=== PATIENT | male | born 1955 | race Caucasian/White ===

== ENCOUNTER 2021-03-29 08:31 | Outpatient (RCR) | payer MEDICARE, OTHER | END 2021-06-27 | disposition home or self-care (01) | LOC: ONC 08:31 | PROVIDERS: ATTEND Radiology Radiation Oncology | DX: C61 Malignant neoplasm of prostate (principal); E78.00 Pure hypercholesterolemia, unspecified; I10 Essential (primary) hypertension; E78.5 Hyperlipidemia, unspecified; M06.9 Rheumatoid arthritis, unspecified | CPT/HCPCS: 76873; 99204 ==

== ENCOUNTER 2021-08-04 05:33 | Outpatient (CLI) | payer MEDICARE ==
[~2021-08-04] VITALS: Ht 172.7 cm; Wt 77.2 kg
[2021-08-04] MEDS ORDERED: PEDI18TA2 PO (11:37)
[2021-08-04] MEDS ORDERED: TOFA5TAB PO (11:37)
[2021-08-04] MEDS ORDERED: OLME40TA12 PO (11:37)
[2021-08-04] MEDS ORDERED: ACHD5005 PO (11:37)
[2021-08-04] MEDS ORDERED: ROSU5TAB PO (11:37)
== END 2021-08-04 14:19 | disposition home or self-care (01) ==
LOC: PREOP 05:33
PROVIDERS: ATTEND Radiology Radiation Oncology
DX: Z01.818 Encounter for other preprocedural examination (principal)

== ENCOUNTER 2021-08-11 09:07 | Day surgery (SDC) | payer MEDICARE ==
[~2021-08-11] VITALS: Ht 172.7 cm; Wt 77.2 kg
[2021-08-11] VITALS (10 sets, daily range): BP systolic 105–137; BP diastolic 72–93
[~2021-08-11 09:07] MED LIST: ACHD5005 PO; OLME40TA12 PO; PEDI18TA2 PO; ROSU5TAB PO; TOFA5TAB PO
--- NOTE | 2021-08-11 10:01 | Progress Note-Pre Operative ---
Pre-Operative Progress Note H&P Reviewed The H&P was reviewed, patient examined and no changes noted. Date Seen by Provider: Aug 11, 2021 Time Seen by Provider: 10:00 Date H&P Reviewed: Aug 11, 2021 Time H&P Reviewed: 10:00 Pre-Operative Diagnosis: Prostate cancer cT1c, PSA 5.35, [place] 7 (3+4) JOLANTA LEE MD Aug 11, 2021 10:01
[2021-08-11] MEDS ORDERED: ACET1TAB43 PO (10:04)
[2021-08-11] MEDS ORDERED: CIPR-226 PO (10:04)
--- NOTE | 2021-08-11 10:09 | Discharge Inst-Simple/Standard ---
Discharge Inst-Standard Reconcile Patient Problems Problems Reviewed?: Yes Discharge Medications New, Converted or Re-Newed RX: Other (scripts called into [facility] in [place] 08/10/21) Patient Instructions/Follow Up Plan of Care/Instructions/FU: 1) one month post implant scan at cancer center 09/08/21 at 10:00 a.m. 2) one month follow up with Dr. Chaudhari 09/09/21 at 2:45 p.m. Activity as Tolerated: Yes Discharge Diet: No Restrictions Other Inst to Patient Please instruct patient on mendieta care and self removal to be done on Monday08/16/21 morning. JOLANTA LEE MD Aug 11, 2021 10:09
[2021-08-11] MEDS: LACTATED RINGERS 1,000 ML IV PRN ×2 (10:22→12:34)
[2021-08-11] MEDS ORDERED: BACITRACIN OINTMENT 28 GM TUBE ONE (11:12)
[2021-08-11] MEDS ORDERED: ONDANSETRON 4 MG/2 ML (SDV) Z0FRAN ONE (11:40)
[2021-08-11] MEDS ORDERED: fentaNYL INJ 100 MCG/2 ML AMP ONE (11:40)
[2021-08-11] MEDS ORDERED: proPOfol 200 MG/20 ML (DIPRIVAN) VIAL IV ONE (11:40)
[2021-08-11] MEDS ORDERED: LIDOCAINE PF 2% 5 ML (XYLOCAINE) VIAL ONE (11:40)
[2021-08-11] MEDS ORDERED: SEVOFLURANE (ULTANE) 15 ML INHAL SOLN ONE (11:40)
[2021-08-11] MEDS ORDERED: MIDAZOLAM 2 MG/2 ML (VERSED) VIAL ONE (11:41)
--- NOTE | 2021-08-11 12:50 | Anesthesia-General Post-Op ---
General Patient Condition Mental Status/LOC: Same as Preop Cardiovascular: Satisfactory Nausea/Vomiting: Absent Respiratory: Satisfactory Pain: Controlled Complications: Absent Post Op Complications Complications None Follow Up Care/Instructions Patient Instructions None needed. Anesthesia/Patient Condition Patient Condition Patient is doing well, no complaints, stable vital signs, no apparent adverse anesthesia problems. No complications reported per nursing. YOLI IRIZARRY CRNA Aug 11, 2021 12:50
[2021-08-11] MEDS ORDERED: PHENYLEPHRINE 100 MCG/ML 10 ML (ANESTHESIA) SYR ONE (12:54)
--- NOTE | 2021-08-11 12:58 | Progress Note-Post Operative ---
Post-Operative Progess Note Surgeon (s)/Riverboat Master (s) Surgeon JOLANTA LEE MD Riverboat Master: Jolanta QUINTEROS MD Pre-Operative Diagnosis Prostate cancer cT1c, PSA 5.35, [place] 7 (3+4) Post-Operative Diagnosis Same as pre-op Procedure & Operative Findings Date of Procedure 08/11/21 Procedure Performed/Findings (1) 100% Cesium 131 permanent prostate seed implant (2) Injection of biodegradable hydrogel prostate-rectal spacer utilizing the SpaceOAR system (3) Cystogram Prostate volume 37 cc Anesthesia Type General Estimated Blood Loss Estimated blood loss (mL): Minimal Specimens/Packing Specimens Removed None Packing: None JOLANTA LEE MD Aug 11, 2021 12:58
[2021-08-11] MEDS ORDERED: MEPERIDINE (DEMEROL) INJ 50 MG/ML IVP ONE (13:00)
[2021-08-11] MEDS ORDERED: PROMETHAZINE INJ 25 MG/ML (PHENERGAN) AMP IVP ONE (13:00)
[2021-08-11] MEDS ORDERED: morphine INJ 10 MG/ML 1ML (SYR OR VIAL) IVP ONE (13:00)
[2021-08-11] MEDS ORDERED: ONDANSETRON 4 MG/2 ML (SDV) Z0FRAN IVP PRN (13:00)
--- NOTE | 2021-08-11 13:30 | Diagnostic Imaging Report ---
INDICATION: Fluoroscopy for brachytherapy. Fluoroscopy was provided during brachytherapy. 15 seconds of fluoroscopic time was utilized. Single image was obtained and demonstrated multiple prostate radiation seed implants. IMPRESSION: Fluoroscopy for brachytherapy. Dictated by: Dictated on workstation # [id number]
== END 2021-08-11 15:00 | disposition home or self-care (01) ==
LOC: SDC 09:07
PROVIDERS: ATTEND Radiology Radiation Oncology
DX: C61 Malignant neoplasm of prostate (principal); E78.00 Pure hypercholesterolemia, unspecified; I10 Essential (primary) hypertension; M06.9 Rheumatoid arthritis, unspecified; E78.5 Hyperlipidemia, unspecified; Z80.49 Family history of malignant neoplasm of other genital organs; Z79.891 Long term (current) use of opiate analgesic; Z79.899 Other long term (current) drug therapy
CPT/HCPCS: 76000; 76965; 77290; 77318; 77332; 77370; 77470; 77778; 87081

== ENCOUNTER 2021-09-08 10:02 | Outpatient (RCR) | payer MEDICARE ==
[~2021-09-08 10:02] MED LIST changes: +ACET1TAB43 PO; +CIPR-226 PO
== END 2021-09-27 | disposition home or self-care (01) ==
LOC: ONC 10:02
PROVIDERS: ATTEND Radiology Radiation Oncology
DX: C61 Malignant neoplasm of prostate (principal); E78.00 Pure hypercholesterolemia, unspecified; I10 Essential (primary) hypertension; E78.5 Hyperlipidemia, unspecified; M06.9 Rheumatoid arthritis, unspecified

== ENCOUNTER 2021-10-22 09:30 | Outpatient (RCR) | payer MEDICARE | END 2021-10-28 | disposition home or self-care (01) | LOC: ONC 09:30 | PROVIDERS: ATTEND Radiology Radiation Oncology | DX: C61 Malignant neoplasm of prostate (principal); E78.00 Pure hypercholesterolemia, unspecified; I10 Essential (primary) hypertension | CPT/HCPCS: 77295 ==

== ENCOUNTER 2022-03-17 08:53 | Outpatient (RCR) | payer MEDICARE ==
[~2022-03-17 08:53] MED LIST changes: +ACET-11 PO; -ACET1TAB43 PO
== END 2022-03-30 | disposition home or self-care (01) ==
LOC: ONC 08:53
PROVIDERS: ATTEND Radiology Radiation Oncology
DX: C61 Malignant neoplasm of prostate (principal)
CPT/HCPCS: 99213